=== PATIENT | female | born 1955 | race Caucasian/White ===

== ENCOUNTER 2016-11-16 09:47 | Emergency (ER) | payer OTHER ==
[~2016-11-16] VITALS: Ht 160 cm; Wt 57.0 kg
[2016-11-16 09:50] VITALS: BP 168/80; PULSE 72; RESP 15; TEMP 98.2; O2SAT 97
--- NOTE | 2016-11-16 10:04 | PD ---
HPI Chief Complaint: Eye Problems/Injury Time Seen by Provider: 10:04 Travel History International Travel<30 days: No Contact w/Intl Traveler<30days: No Traveled to known affect area: No History of Present Illness HPI 61-year-old female coming in with history of vitreol floaters, and the right eye, and experiencing increased sparkles in the right lateral visual field. Patient states they started 3 days ago, and her intermittent but has seemed to be progressing in the last 24 hours. Patient denies any other specific neurologic changes, and denies headache or other symptoms. Patient is here visiting from [place] until next week. She denies any other constitutional symptoms. She is allergic to Keflex, penicillin, Plavix, and sulfa. FOR[facility]LY [facility], [facility] Past Medical History Neurologic: Yes (patient reports history of MS.) ?: Not Social History Alcohol Use: Yes Tobacco Use: No Substance Use: No Allergies-Medications (Allergen,Severity, Reaction): Coded Allergies: Keflex (Verified Allergy, Severe, Rash, 11/16/16) Penicillin (Verified Allergy, Severe, Rash, 11/16/16) Plavix (Verified Allergy, Severe, Rash, 11/16/16) Sulfa (Verified Allergy, Severe, Rash, 11/16/16) Review of Systems General / Constitutional: No: Fever Eyes: Positive: Visual changes (see history present illness.), No: Diploplia, Blurred Vision, Photophobia, Drainage, Redness, Foreign Body Sensation, Pain, Tearing, Blind Spots, Blindness HENT: No: Headaches Cardiovascular: No: Chest Pain or Discomfort Respiratory: No: Shortness of Breath Gastrointestinal: No: Abdominal Pain Genitourinary: No: Dysuria Musculoskeletal: No: Pain Skin: No Rash Neurologic: No: Weakness Psychiatric: No: Depression Endocrine: No: Polydipsia Hematologic/Lymphatic: No: Easy Bruising Physical Exam Narrative GENERAL: Patient appears in no acute distress. SKIN: Warm and dry. Normal color. Normal turgor. No rash. HEAD: Atraumatic. Normocephalic. EYES: Pupils equal and round. No scleral icterus. No injection or drainage. Ophthalmoscopic exam shows normal white reflex bilaterally. There is no retinal hemorrhage or tear appreciated by my exam. There are no signs of AV nicking or visible vitreal floaters. Visual [place] are equal in all quadrants by confrontation. ENT: No nasal bleeding or discharge. Mucous membranes pink and moist. Airways patent. NECK: Trachea midline. No JVD. CARDIOVASCULAR: Regular rate and rhythm. RESPIRATORY: No accessory muscle use. Clear to auscultation. Breath sounds equal bilaterally. MUSCULOSKELETAL: Extremities without clubbing, cyanosis, or edema. No obvious deformities. NEUROLOGICAL: Awake and alert. No obvious cranial nerve deficits. Motor grossly within normal limits. Five out of 5 muscle strength in the arms and legs. Normal speech. PSYCHIATRIC: Appropriate mood and affect; insight and judgment normal. Data Data Last Documented VS Vital Signs Date Time Temp Pulse Resp B/P Pulse Ox O2 Delivery O2 Flow Rate FiO2 11/16/16 09:50 98.2 72 15 168/80 97 MDM Medical Decision Making Medical Screen Exam Complete: Yes Emergency Medical Condition: Yes Differential Diagnosis Vitreal floaters. Possible retinal tear. Right-sided visual changes. Narrative Course Patient is medically stable at time of exam. Physical exam shows no acute findings on retinal exam here. Call was placed to Dr. Johnson, the curriculum consultant on-call and the patient was discussed. Dr. Johnson felt that the patient did not warrant acute medical workup today based on my exam and her history. Dr. Johnson recommends follow-up on Friday at his office. Patient is to call his office early Friday morning at . Patient should return the emergency Department with worsening symptoms as needed. Diagnosis Primary Impression: Vitreous floaters of right eye Referrals: Asher Johnson MD call for appointment Additional Instructions: Call was placed to Dr. Johnson, the curriculum consultant on-call and the patient was discussed. Dr. Johnson felt that the patient did not warrant acute medical workup today based on my exam and her history. Dr. Johnson recommends follow-up on Friday at his office. Patient is to call his office early Friday morning at . Patient should return the emergency Department with worsening symptoms as needed. Disposition: 01 DISCHARGE HOME Condition: Stable Danie Lucio Nov 16, 2016 10:04
[2016-11-16] MEDS ORDERED: METO25TA3 PO (11:00)
[2016-11-16] MEDS ORDERED: RAMI1.252 PO (11:00)
[2016-11-16] MEDS ORDERED: INTE1KIT3 IM (11:00)
[2016-11-16] MEDS ORDERED: LEVO137T2 PO (11:00)
[2016-11-16] MEDS ORDERED: DULO20 PO (11:00)
[2016-11-16] MEDS ORDERED: ZOCO40TA PO (11:00)
== END 2016-11-16 11:03 | disposition home or self-care (01) ==
LOC: NEPB 09:47
DX: H43.391 Other vitreous opacities, right eye (principal)
CPT/HCPCS: 99283